=== PATIENT | female | born 1965 | race Caucasian/White ===

== ENCOUNTER → 2023-11-09 09:41 | Outpatient (CLI) | payer OTHER, SELFPAY ==
--- NOTE | ~2023-11-09 | XR_ITS ---
Right Hand Technique: PA, oblique, and lateral views were obtained. Clinical History: Pain Findings: No acute fracture or dislocation is seen. Osseous alignment is anatomic. Joint spaces are p reserved. Soft tissues are unremarkable. Impression: Unremarkable right hand. Reviewed, dictated and finalized at location M. CH CONSULTANT Impression: Unremarkable right hand.
--- NOTE | ~2023-11-09 | XR_ITS ---
Left Hand Technique: PA, oblique, and lateral views were obtained. Clinical History: Pain Findings: No acute fracture or dislocation is seen. Osseous alignment is anatomic. Joint spaces are p reserved. Soft tissues are unremarkable. Impression: Unremarkable left hand. Reviewed, dictated and finalized at location M. ER OPERATOR Impression: Unremarkable left hand.
--- NOTE | ~2023-11-09 | US_ITS ---
EXAMINATION: US soft tissue LE RT DATE: 11/09/2023 10:32 INDICATION: Lump of skin of right lower extremity. TECHNIQUE: Multiple grayscale and Doppler ultrasound images of the right lower extremity were obtaine d. COMPARISON: None FINDINGS: There is no abnormal mass in the patient's area of concern in right lower limb. IMPRESSION: 1. No abnormal mass in the patient's area of concern in right lower limb. Reviewed, dictated and finalized at location E. ILE STITCHING MACHINE OPERATOR
== END ==
PROVIDERS: PCP Physician Assistant
DX: M25.549 Pain in joints of unspecified hand (principal); R22.43 Localized swelling, mass and lump, lower limb, bilateral
CPT/HCPCS: 73130; 76882

== ENCOUNTER 2024-01-10 11:29 | Outpatient (CLI) | payer OTHER, SELFPAY ==
--- NOTE | ~2024-01-10 | MM_ITS ---
EXAMINATION: MM screening jesica BI w marina HISTORY: Screening mammogram TECHNIQUE: Craniocaudal and mediolateral oblique 3-D tomosynthesis images were obtained and synthetic 2-D images were generated. CAD analysis was submitted and interpreted. COMPARISON: 02/01/2013 bilateral diagnostic mammogram and bilateral breast ultrasound examination 01/16/2013 bilateral screening mammogram BREAST PARENCHYMAL COMPOSITION: There are scattered areas of fibroglandular density. FINDINGS: Biopsy marker on the left; history of prior benign left breast biopsy. There occasional dequan ign appearing intramammary and axillary tail probable left nodes. There is no evidence of suspicious mass, calcification, or architectural distortion to suggest malignancy in either breast. There has be en no suspicious interval change. IMPRESSION: 1. No mammographic evidence of malignancy. 2. Recommend routine screening mammography in one year. BI-RADS Category 2: Benign finding(s). Reviewed, dictated and finalized at location A.
== END 2024-01-10 11:30 ==
LOC: MICIMG 11:30
DX: Z12.31 Encounter for screening mammogram for malignant neoplasm of breast (principal)
CPT/HCPCS: 77063; 77067